=== PATIENT | male | born 1990 | race African-American/Black ===

== ENCOUNTER 2018-12-28 12:12 | Emergency (ER) | payer BC, SELFPAY ==
--- NOTE | 2018-12-28 13:35 | RAD ---
PORTABLE CHEST 1 VIEW: Date: 12/28/18 Time: 1325 hours HISTORY: Cough, fever, body aches, nausea, and vomiting. FINDINGS: Comparison made with exam of 07/31/16. The heart size is normal. The lungs are expanded without focal areas of consolidation, pneumothoraces , or pleural effusions. Bony structures are unremarkable. IMPRESSION: No radiographic evidence of acute cardiopulmonary process. POS: OFF
== END 2018-12-28 14:05 | disposition home or self-care (01) ==
LOC: ERS 12:12
DX: J10.1 Influenza due to other identified influenza virus with other respiratory manifestations (principal)
CPT/HCPCS: 71045; 87081; 87430; 87804; 94640; J7620

== ENCOUNTER 2019-04-21 01:58 | Emergency (ER) | payer SELFPAY ==
[2019-04-21] MEDS ORDERED: Adacel (T-DAP) 0.5 ML SYRINGE ONE (02:13)
== END 2019-04-21 02:19 | disposition home or self-care (01) ==
LOC: ERS 01:58
DX: S01.81XA Laceration without foreign body of other part of head, initial encounter (principal); S01.512A Laceration without foreign body of oral cavity, initial encounter; F17.210 Nicotine dependence, cigarettes, uncomplicated; X58.XXXA Exposure to other specified factors, initial encounter
CPT/HCPCS: 12011; 90715

== ENCOUNTER 2019-04-26 14:45 | Emergency (ER) | payer SELFPAY | END 2019-04-26 15:40 | disposition home or self-care (01) | LOC: ERS 14:45 | DX: S01.511D Laceration without foreign body of lip, subsequent encounter (principal); F17.210 Nicotine dependence, cigarettes, uncomplicated ==

== ENCOUNTER 2019-06-28 19:43 | Emergency (ER) | payer SELFPAY ==
[2019-06-28] MEDS ORDERED: Bacitracin 1 PK ONE (20:34)
--- NOTE | 2019-06-28 21:09 | RAD ---
LEFT INDEX FINGER: 06/28/19 HISTORY: Index finger laceration. FINDINGS/IMPRESSION: There is no signs of fracture or dislocation. No radiopaque foreign bodies are seen. POS: [facility]
== END 2019-06-28 20:39 | disposition home or self-care (01) ==
LOC: ERS 19:43
DX: S61.211A Laceration without foreign body of left index finger without damage to nail, initial encounter (principal); J45.909 Unspecified asthma, uncomplicated; F17.210 Nicotine dependence, cigarettes, uncomplicated; W26.0XXA Contact with knife, initial encounter
CPT/HCPCS: 12001; 99406

== ENCOUNTER 2019-10-03 11:33 | Emergency (ER) | payer SELFPAY ==
[2019-10-03] MEDS ORDERED: Ketorolac Tromethamine 30 MG/ML VIAL ONE (12:06)
== END 2019-10-03 12:40 | disposition home or self-care (01) ==
LOC: ERS 11:33
DX: J11.1 Influenza due to unidentified influenza virus with other respiratory manifestations (principal); J45.909 Unspecified asthma, uncomplicated; F17.210 Nicotine dependence, cigarettes, uncomplicated
CPT/HCPCS: 94640; 96372; J1885; J7620

== ENCOUNTER 2024-08-17 09:14 | Emergency (ER) | payer OTHER, SELFPAY ==
[2024-08-17 09:32] LABS: #Basophils Less than 0.03 10x3/uL (0.0-0.2); %Basophils 0.2 % (0.0-1.0); %Eosinophils 1.1 % (0.0-10.0); %Lymphocytes 29.1 % (21.0-51.0); %Monocytes 5.9 % (0.0-10.0); %Neutrophils 63.4 % (42.0-75.0); Hematocrit 45.8 % (42.0-52.0); Hemoglobin 15.1 g/dL (14.0-18.0); Mean Corpuscular Hemoglobin 29.8 pg (27.0-31.0); Mean Corpuscular Volume 90.3 fL (78.0-98.0); Mean Platelet Volume 8.6 fL (7.4-10.4); Platelet Count 256 10x3/uL (130-400); RBC Distribution Width 12.9 % (11.5-14.5); Red Blood Cell (RBC) Count 5.07 mill/uL (4.70-6.10)
[2024-08-17] MEDS ORDERED: Ondansetron PF 4 MG/2 ML Vial ONE (09:44)
[2024-08-17] MEDS ORDERED: Morphine 4 MG/ML VIAL ONE (09:44)
[2024-08-17 09:50] LABS: ALT (SGPT) 39 U/L (8-55); AST (SGOT) 33 U/L (5-34); Albumin 3.7 g/dL (3.5-5.0); Alkaline Phosphatase 65 U/L (40-110); Anion Gap 13 mmol/L (10-20); BUN (Urea Nitrogen) 9 mg/dL (8.9-20.6); Bilirubin, Total 0.6 mg/dL (0.2-1.2); Calc. Creatinine Clearance 0 mL/min (70-130); Calcium 8.7 mg/dL (7.8-10.44); Carbon Dioxide 26 mmol/L (22-29); Chloride 107 mmol/L (98-107); Estimated GFR 107; Globulin 2.6 g/dL (2.4-3.5); Glucose 147 mg/dL (70-105); Lipase 21 U/L (8-78); Potassium 4.3 mmol/L (3.5-5.1); Protein, Total 6.3 g/dL (6.0-8.3); Sodium 142 mmol/L (136-145)
[2024-08-17 10:47] LABS: Troponin I Less than 0.010 ng/mL (< 0.028)
[2024-08-17 11:26] LABS: Bacteria/HPF None Seen HPF (None Seen); Bilirubin Negative (Negative); Blood, Urine Negative (Negative); CAUTI Indications for Culture Pelvic or flank pain; Clarity Clear (Clear); Glucose, Urine (Dipstick) Normal (Negative); Ketone, Urine Negative (Negative); Leukocyte Negative Leu/uL (Negative); Nitrite Negative (Negative); Protein, Urine (Dipstick) Negative (Neg-Trace); RBC/HPF 0-3 HPF (0-3); Squamous Epithelial 0-3 HPF (0-3); Urobilinogen Normal mg/dL (Less than 2); WBC/HPF 0-3 HPF (0-3)
[2024-08-17 11:32] LABS: Specific Gravity, Urine 1.052 (1.002-1.036)
[2024-08-17 11:33] LABS: Urine Culture Reflex No No
[2024-08-17] MEDS ORDERED: Dicyclomine 20 MG TAB ONE (11:34)
[2024-08-17] MEDS ORDERED: Pantoprazole 40 MG VIAL ONE (11:37)
[2024-08-17] MEDS ORDERED: Iopamidol-370 76% 500 ML MDV (1 ML CHARGE) ONE (12:41)
== END 2024-08-17 12:07 | disposition home or self-care (01) ==
LOC: ERS 09:14
DX: K76.0 Fatty (change of) liver, not elsewhere classified (principal); K52.9 Noninfective gastroenteritis and colitis, unspecified; F17.210 Nicotine dependence, cigarettes, uncomplicated
CPT/HCPCS: 36415; 74177; 80053; 81001; 83690; 84484; 85025; 93005; 96374; 96375; J2272; J2405; J2470; Q9967